=== PATIENT | male | born 1960 | race Two or more races ===

== ENCOUNTER 2020-10-28 09:13 | Outpatient (CLI) | payer OTHER | END 2020-10-28 09:14 | disposition home or self-care (01) | LOC: LAB 09:13 | DX: E11.69 Type 2 diabetes mellitus with other specified complication (principal); E78.49 Other hyperlipidemia; K62.5 Hemorrhage of anus and rectum; Z13.0 Encounter for screening for diseases of the blood and blood-forming organs and certain disorders involving the immune mechanism; E11.29 Type 2 diabetes mellitus with other diabetic kidney complication; Z12.11 Encounter for screening for malignant neoplasm of colon; R79.89 Other specified abnormal findings of blood chemistry; N39.0 Urinary tract infection, site not specified; E11.65 Type 2 diabetes mellitus with hyperglycemia; Z13.220 Encounter for screening for lipoid disorders; N18.9 Chronic kidney disease, unspecified; Z13.1 Encounter for screening for diabetes mellitus; Z13.29 Encounter for screening for other suspected endocrine disorder; M81.0 Age-related osteoporosis without current pathological fracture; N40.0 Benign prostatic hyperplasia without lower urinary tract symptoms; E55.9 Vitamin D deficiency, unspecified; R80.8 Other proteinuria; I10 Essential (primary) hypertension; Z13.89 Encounter for screening for other disorder; Z13.9 Encounter for screening, unspecified ==

== ENCOUNTER 2020-10-28 12:03 | Outpatient (CLI) | payer OTHER | END 2020-10-28 12:09 | disposition home or self-care (01) | LOC: RAD 12:03 | DX: I11.9 Hypertensive heart disease without heart failure (principal); I70.0 Atherosclerosis of aorta; Z12.2 Encounter for screening for malignant neoplasm of respiratory organs ==

== ENCOUNTER → 2021-01-08 11:10 | Outpatient (CLI) | payer OTHER | END | disposition home or self-care (01) | LOC: LAB 11:10 | DX: Z12.11 Encounter for screening for malignant neoplasm of colon (principal) ==

== ENCOUNTER 2021-01-08 12:00 | Outpatient (CLI) | payer OTHER | END 2021-01-08 12:09 | disposition home or self-care (01) | LOC: RAD 12:00 | DX: J01.90 Acute sinusitis, unspecified (principal); R09.82 Postnasal drip; Z87.891 Personal history of nicotine dependence ==

== ENCOUNTER 2021-03-24 10:09 | Outpatient (CLI) | payer OTHER | END 2021-03-24 15:00 | disposition home or self-care (01) | LOC: LAB 10:09 | PROVIDERS: ATTEND Urology | DX: E29.1 Testicular hypofunction (principal); N39.0 Urinary tract infection, site not specified; N40.1 Benign prostatic hyperplasia with lower urinary tract symptoms ==

== ENCOUNTER 2021-03-24 10:14 | Outpatient (CLI) | payer OTHER | END 2021-03-24 10:25 | disposition home or self-care (01) | LOC: SONOGRAMA 10:14 → MAMO-SONO 10:15 → SONOGRAMA 10:25 | PROVIDERS: ATTEND Urology | DX: N20.0 Calculus of kidney (principal) ==

== ENCOUNTER → 2021-07-14 10:10 | Outpatient (CLI) | payer OTHER | END | disposition home or self-care (01) | LOC: LAB 10:10 | DX: E11.29 Type 2 diabetes mellitus with other diabetic kidney complication (principal); E11.65 Type 2 diabetes mellitus with hyperglycemia; E11.69 Type 2 diabetes mellitus with other specified complication; E21.1 Secondary hyperparathyroidism, not elsewhere classified; E03.8 Other specified hypothyroidism; I11.9 Hypertensive heart disease without heart failure; R31.29 Other microscopic hematuria; N39.0 Urinary tract infection, site not specified ==

== ENCOUNTER 2022-01-15 10:15 | Outpatient (CLI) | payer OTHER | END 2022-01-15 10:28 | disposition home or self-care (01) | LOC: LAB 10:15 | PROVIDERS: ATTEND Internal Medicine | DX: E11.69 Type 2 diabetes mellitus with other specified complication (principal); E78.5 Hyperlipidemia, unspecified; K62.5 Hemorrhage of anus and rectum; Z12.0 Encounter for screening for malignant neoplasm of stomach; Z12.11 Encounter for screening for malignant neoplasm of colon; R79.89 Other specified abnormal findings of blood chemistry; N39.0 Urinary tract infection, site not specified; Z13.29 Encounter for screening for other suspected endocrine disorder; M81.0 Age-related osteoporosis without current pathological fracture; N40.0 Benign prostatic hyperplasia without lower urinary tract symptoms; E55.9 Vitamin D deficiency, unspecified; R80.9 Proteinuria, unspecified; I10 Essential (primary) hypertension; Z13.89 Encounter for screening for other disorder; Z13.9 Encounter for screening, unspecified; E21.3 Hyperparathyroidism, unspecified; R82.90 Unspecified abnormal findings in urine; E11.29 Type 2 diabetes mellitus with other diabetic kidney complication; Z12.2 Encounter for screening for malignant neoplasm of respiratory organs; I70.0 Atherosclerosis of aorta; I11.9 Hypertensive heart disease without heart failure ==

== ENCOUNTER 2022-05-20 10:25 | Outpatient (CLI) | payer OTHER | END 2022-05-20 10:35 | disposition home or self-care (01) | LOC: LAB 10:25 | PROVIDERS: ATTEND Internal Medicine | DX: E11.29 Type 2 diabetes mellitus with other diabetic kidney complication (principal); E11.65 Type 2 diabetes mellitus with hyperglycemia; E11.69 Type 2 diabetes mellitus with other specified complication; I11.9 Hypertensive heart disease without heart failure; R82.90 Unspecified abnormal findings in urine; E87.8 Other disorders of electrolyte and fluid balance, not elsewhere classified ==

== ENCOUNTER 2022-12-09 10:12 | Outpatient (CLI) | payer OTHER | END 2022-12-09 10:15 | disposition home or self-care (01) | LOC: LAB 10:12 | DX: I11.9 Hypertensive heart disease without heart failure (principal); E78.2 Mixed hyperlipidemia; E11.65 Type 2 diabetes mellitus with hyperglycemia; J44.9 Chronic obstructive pulmonary disease, unspecified; N52.01 Erectile dysfunction due to arterial insufficiency; N52.9 Male erectile dysfunction, unspecified; I73.9 Peripheral vascular disease, unspecified; E55.9 Vitamin D deficiency, unspecified; F51.01 Primary insomnia; I87.2 Venous insufficiency (chronic) (peripheral); F10.10 Alcohol abuse, uncomplicated; T65.224A Toxic effect of tobacco cigarettes, undetermined, initial encounter; Z13.29 Encounter for screening for other suspected endocrine disorder; Z12.11 Encounter for screening for malignant neoplasm of colon; Z13.820 Encounter for screening for osteoporosis; Z12.5 Encounter for screening for malignant neoplasm of prostate ==

== ENCOUNTER 2022-12-21 08:15 | Outpatient (CLI) | payer OTHER | END 2022-12-21 08:19 | disposition home or self-care (01) | LOC: LAB 08:15 | PROVIDERS: ATTEND Internal Medicine | DX: I11.9 Hypertensive heart disease without heart failure (principal); E78.2 Mixed hyperlipidemia; N52.01 Erectile dysfunction due to arterial insufficiency; I73.9 Peripheral vascular disease, unspecified; E55.9 Vitamin D deficiency, unspecified; F51.01 Primary insomnia; I87.2 Venous insufficiency (chronic) (peripheral) ==

== ENCOUNTER 2023-04-22 10:20 | Outpatient (CLI) | payer OTHER | END 2023-04-22 10:26 | disposition home or self-care (01) | LOC: LAB 10:20 | PROVIDERS: ATTEND Internal Medicine | DX: E11.29 Type 2 diabetes mellitus with other diabetic kidney complication (principal); E11.65 Type 2 diabetes mellitus with hyperglycemia; I11.9 Hypertensive heart disease without heart failure; E87.8 Other disorders of electrolyte and fluid balance, not elsewhere classified; E21.1 Secondary hyperparathyroidism, not elsewhere classified; I13.10 Hypertensive heart and chronic kidney disease without heart failure, with stage 1 through stage 4 chronic kidney disease, or unspecified chronic kidney disease; D63.8 Anemia in other chronic diseases classified elsewhere ==

== ENCOUNTER 2023-07-19 09:36 | Outpatient (CLI) | payer OTHER ==
[2023-07-19 11:22] LABS: ALBUMIN 3.5 gm/dL (3.4-5.0); BILIRUBIN TOTAL 0.62 mg/dL (0.3-1.2); CALCIUM 9.3 mg/dL (8.5-10.1); CHOL HDL RATIO 2.6 (0-5.0); CREATININE SERUM 1.54 mg/dL (0.70-1.30); GFR 45.71; GLOBULINA 3.4 G/DL (2.4-3.5); POTASSIUM 4.76 mEq/L (3.5-5.1); TOTAL PROTEIN 6.9 gm/dL (6.4-8.2)
== END 2023-07-19 13:43 | disposition home or self-care (01) ==
LOC: LAB 09:36
DX: E11.29 Type 2 diabetes mellitus with other diabetic kidney complication (principal); E11.65 Type 2 diabetes mellitus with hyperglycemia; I11.9 Hypertensive heart disease without heart failure; E87.8 Other disorders of electrolyte and fluid balance, not elsewhere classified; R80.9 Proteinuria, unspecified; E78.5 Hyperlipidemia, unspecified; E11.69 Type 2 diabetes mellitus with other specified complication; K62.5 Hemorrhage of anus and rectum; Z13.0 Encounter for screening for diseases of the blood and blood-forming organs and certain disorders involving the immune mechanism; Z12.11 Encounter for screening for malignant neoplasm of colon; R79.89 Other specified abnormal findings of blood chemistry; N39.0 Urinary tract infection, site not specified; N18.9 Chronic kidney disease, unspecified; Z13.29 Encounter for screening for other suspected endocrine disorder; M81.0 Age-related osteoporosis without current pathological fracture; N40.0 Benign prostatic hyperplasia without lower urinary tract symptoms; E55.9 Vitamin D deficiency, unspecified; Z13.89 Encounter for screening for other disorder; Z13.9 Encounter for screening, unspecified; E21.3 Hyperparathyroidism, unspecified; R82.90 Unspecified abnormal findings in urine